=== PATIENT | male | born 1955 | race Caucasian/White ===

== ENCOUNTER 2017-06-08 11:59 | Day surgery (SDC) | payer OTHER ==
[2017-06-08] MEDS ORDERED: PROPOFOL 20 ML (12:27)
== END 2017-06-08 15:47 | disposition home or self-care (01) ==
LOC: GIL 11:59
DX: K29.60 Other gastritis without bleeding (principal); K44.9 Diaphragmatic hernia without obstruction or gangrene; E78.5 Hyperlipidemia, unspecified; I10 Essential (primary) hypertension; E66.9 Obesity, unspecified; Z68.26 Body mass index [BMI] 26.0-26.9, adult
CPT/HCPCS: 43239; 87081

== ENCOUNTER 2017-12-07 10:43 | Day surgery (SDC) | payer OTHER ==
[~2017-12-07 10:43] MED LIST: CLINDAMYCIN 900 MG/50 ML D5W IVPB IVPB
[2017-12-07] MEDS ORDERED: LIDOCAINE 1% (MPF) 30 ML INJ (12:19)
[2017-12-07] MEDS ORDERED: ROCURONIUM 50 MG INJ (12:39)
[2017-12-07] MEDS ORDERED: DEXAMETHASONE 4 MG/ML 1 ML INJ (12:39)
[2017-12-07] MEDS ORDERED: GLYCOPYRROLATE 0.4 MG INJ (12:39)
[2017-12-07] MEDS ORDERED: FENTAnyl 50 MCG/ML VIAL (12:39)
[2017-12-07] MEDS ORDERED: NEOSTIGMINE 3 MG/3 ML SYRINGE (12:39)
[2017-12-07] MEDS ORDERED: PROPOFOL 20 ML (12:39)
[2017-12-07] MEDS ORDERED: LIDOCAINE 2% (SDV) 5 ML INJ (12:39)
[2017-12-07] MEDS ORDERED: MIDAZOLAM 1 MG/ML 2 ML INJ (12:39)
[2017-12-07] MEDS ORDERED: ONDANSETRON 4 MG INJ (12:40)
[2017-12-07] MEDS ORDERED: POVIDONE IODINE 10% 28.4 GM OINT (12:40)
[2017-12-07] MEDS: BUPIVACAINE 0.5% (SDV) 30 ML INJ (13:28)
[2017-12-07] MEDS ORDERED: MEPERIDINE 25 MG INJ IV (14:30)
[2017-12-07] MEDS ORDERED: OXYCODONE/ACETAMINOPHEN (5/325) TAB PO ×2 (14:30)
[2017-12-07] MEDS ORDERED: METOCLOPRAMIDE 10 MG INJ IV (14:30)
[2017-12-07] MEDS ORDERED: FENTAnyl 50 MCG/ML VIAL IV ×2 (14:30)
[2017-12-07] MEDS ORDERED: HYDROmorphONE 1 MG/5 ML IV SYRINGE IV ×2 (14:30)
[2017-12-07] MEDS ORDERED: DIPHENHYDRAMINE 50 MG INJ IV (14:30)
[2017-12-07] MEDS ORDERED: KETOROLAC 15 MG INJ IV (14:30)
== END 2017-12-07 15:42 | disposition home or self-care (01) ==
LOC: SDS 10:43
DX: L60.0 Ingrowing nail (principal); L03.032 Cellulitis of left toe; L03.031 Cellulitis of right toe; E11.9 Type 2 diabetes mellitus without complications; I10 Essential (primary) hypertension
CPT/HCPCS: 11750; 88304

== ENCOUNTER 2018-07-27 07:15 | Day surgery (SDC) | payer OTHER ==
[2018-07-27] MEDS ORDERED: DIPHENHYDRAMINE 50 MG INJ IV (08:30)
[2018-07-27] MEDS ORDERED: HYDROmorphONE 1 MG/5 ML IV SYRINGE IV ×3 (08:30)
[2018-07-27] MEDS ORDERED: EPHEDrine SULFATE 50 MG/5 ML SYG IV (08:30)
[2018-07-27] MEDS ORDERED: FENTAnyl 50 MCG/ML VIAL IV ×3 (08:30)
[2018-07-27] MEDS ORDERED: LABETALOL HCL 20MG INJ IV (08:30)
[2018-07-27] MEDS ORDERED: TRIMETHOBENZAMIDE 100 MG/ML VIAL IM (08:30)
[2018-07-27] MEDS ORDERED: ALBUTEROL 0.083% (NEB) 2.5 MG/3 ML AMP HHN (08:30)
[2018-07-27] MEDS ORDERED: MEPERIDINE 25 MG INJ IV (08:30)
[2018-07-27] MEDS ORDERED: MIDAZOLAM 1 MG/ML 2 ML INJ IV (08:30)
[2018-07-27] MEDS ORDERED: ONDANSETRON 4 MG INJ IV (08:30)
[2018-07-27] MEDS ORDERED: IPRATROPIUM (NEB) 0.5 MG/2.5 ML AMP HHN (08:30)
[2018-07-27] MEDS ORDERED: hydrALAzine 20 MG INJ IV (08:30)
[2018-07-27] MEDS ORDERED: OXYCODONE/ACETAMINOPHEN (5/325) TAB PO ×2 (08:30)
[2018-07-27] MEDS ORDERED: FENTAnyl 50 MCG/ML VIAL (08:31)
[2018-07-27] MEDS ORDERED: LIDOCAINE 100 MG SYRINGE (08:31)
[2018-07-27] MEDS ORDERED: PROPOFOL 40 ML (08:31)
== END 2018-07-27 10:58 | disposition home or self-care (01) ==
LOC: GIL 07:15
DX: B37.81 Candidal esophagitis (principal); K31.7 Polyp of stomach and duodenum; G12.8 Other spinal muscular atrophies and related syndromes; K57.30 Diverticulosis of large intestine without perforation or abscess without bleeding; D12.8 Benign neoplasm of rectum; K29.30 Chronic superficial gastritis without bleeding; I10 Essential (primary) hypertension
CPT/HCPCS: 43239; 88305; 88312; 88313